=== PATIENT | male | born 1965 | race Caucasian/White ===

== ENCOUNTER 2018-03-30 05:34 | Inpatient (IN) | payer BC, OTHER ==
[2018-03-23 13:45] LABS: BASOPHILS % 0.5 % (0.0-1.0); EOSINOPHILS # (AUTO) 0.1 (0.0-0.4); EOSINOPHILS % 1.9 % (0.0-6.0); HEMATOCRIT 46.2 % (38.2-49.6); HEMOGLOBIN 15.6 g/dL (14.0-18.0); LYMPHOCYTES # (AUTO) 1.5 (1.0-3.2); LYMPHOCYTES % 26.1 % (18.0-39.1); MEAN CORPUSCULAR HEMOGLOBIN 30.2 pg (28-32); MEAN CORPUSCULAR HGB CONC 33.8 g/dL (31-35); MEAN CORPUSCULAR VOLUME 89.4 fL (81-99); MONOCYTES # (AUTO) 0.5 (0.2-0.8); MONOCYTES % 8.6 % (4.4-11.3); NEUTROPHILS # (AUTO) 3.7 (2.1-6.9); NEUTROPHILS % 62.6 % (38.7-80.0); PLATELET COUNT 171 x10e3/uL (140-360); RED BLOOD COUNT 5.17 x10e6/uL (4.3-5.7); RED CELL DISTRIBUTION WIDTH 13.1 % (11.7-14.4)
[2018-03-23 13:58] LABS: ANION GAP 12.3 mmol/L (8-16); BLOOD UREA NITROGEN 13 mg/dL (7-26); BUN/CREATININE RATIO 11 (6-25); CALCIUM 9.7 mg/dL (8.4-10.2); CARBON DIOXIDE 29 mmol/L (22-29); CHLORIDE 100 mmol/L (98-107); CREATININE, SERUM 1.23 mg/dL (0.72-1.25); EST GLOMERULAR FILTRATION RATE > 60 ML/MIN (60-); GLUCOSE 90 mg/dL (74-118); POTASSIUM 4.3 mmol/L (3.5-5.1); SODIUM 137 mmol/L (136-145)
--- NOTE | 2018-03-23 14:02 | Diagnostic Imaging Report ---
EXAMINATION: CHEST 2 VIEWS INDICATION: ^PRE ADMIT ^[id number] ^[id number] COMPARISON: None FINDINGS: PA and lateral views TUBES and LINES: None. LUNGS: Lungs are well inflated. Lungs are clear. There is no evidence of pneumonia or pulmonary edema. PLEURA: No pleural effusion or pneumothorax. HEART AND MEDIASTINUM: The cardiomediastinal silhouette is unremarkable. BONES AND SOFT TISSUES: No acute osseous lesion. Soft tissues are unremarkable. UPPER ABDOMEN: No free air under the diaphragm. IMPRESSION: No acute thoracic abnormality. Signed by: Dr. Domingo Cm MD on 03/23/2018 1:59 PM
[~2018-03-30] VITALS: Ht 177.8 cm; Wt 87.8 kg
[~2018-03-30 05:34] MED LIST: ATENOLOL50 MG PO; ATORVASTATIN CA20 MG PO; GABAPENTIN300 MG PO; LOSARTAN POTASS25 MG PO
--- OUTSIDE RECORDS SUMMARY | 2018-03-30 05:37 | XMS REPORT | Clinical Summary ---
Author Author ONEIDA [employer] [facility] Address Unknown Phone Unavailable Care Team Providers Care Gasoline Service Attendant Name Role Phone Isis Olivera MD PCP Allergies Comments Active Allergy Reactions Severity Noted Date BLISTERING PAPER TAPE OK Adhesive Itching 06/24/2015 Zolpidem Rash Low 05/22/2015 FEVER Cephalexin Other (See 05/22/2015 Comments) Medications End Date Status Medication Sig Dispensed Refills Start Date Active gabapentin (NEURONTIN) Take 300 mg 0 300 MG capsule by mouth daily. Active losartan (COZAAR) 25 MG Take 25 mg by 0 tablet mouth daily. Active atenolol (TENORMIN) 25 MG Take 25 mg by 0 tablet mouth daily. Active atorvastatin (LIPITOR) 40 Take 40 mg by 0 MG tablet mouth daily. 12/02/2017 Discontinued simvastatin (ZOCOR) 20 MG Take 20 mg by 0 tablet mouth nightly. 12/02/2017 Discontinued amitriptyline (ELAVIL) 50 Take 50 mg by 0 MG tablet mouth nightly. 12/02/2017 Discontinued lisinopril Take 20 mg by 0 (PRINIVIL,ZESTRIL) 20 MG mouth daily. tablet 12/02/2017 Discontinued acetaminophen-codeine Take 1 tablet 30 tablet 0 (TYLENOL #4) 300-60 mg by mouth 6 per tablet every 4 (four) hours as needed for Pain for up to 30 doses. 12/23/2017 traMADol (ULTRAM) 50 mg Take 1 tablet 40 tablet 0 tablet (50 mg total) 8 by mouth every 4 (four) hours as needed for Pain for up to 10 days. Max Daily Amount: 300 mg Active Problems Problem Noted Date Impingement syndrome of right shoulder 12/13/2017 Superior glenoid labrum lesion of right shoulder 12/13/2017 Encounters Care Team Description Date Type Specialty Scott Poseyon NOMI Henderson 12/13/2017 Anesthesia Event Santiago Yancey MD ARTHROSCOPY,BICEPS TENODESIS 12/13/2017 Surgery Santiago Yancey MD 12/13/2017 Hospital Encounter Santiago Yancey MD 12/05/2017 Hospital Pre-Admission Testing Encounter 12/05/2017 Orders Only General Internal Medicine after 03/29/2017 Social History Date Tobacco Use Types Packs/Day Years Used Former Smoker Smokeless Tobacco: Never Used Alcohol Use Drinks/Week oz/Week Comments Yes very little Sex Assigned at Date Recorded Not on file Industry Job Start Date Occupation Not on file Not on file Not on file Travel End Travel History Travel Start No recent travel history available. Last Filed Vital Signs Time Taken Vital Sign Reading 12/13/2017 12:50 PM CDT Blood Pressure 130/65 12/13/2017 12:50 PM CDT Pulse 67 12/13/2017 11:42 AM CDT Temperature 36.1 C (97 F) 12/13/2017 12:50 PM CDT Respiratory Rate 16 12/13/2017 12:50 PM CDT Oxygen Saturation 96% - Inhaled Oxygen - Concentration 12/02/2017 4:08 PM CDT Weight 81.2 kg (179 lb) 12/02/2017 4:08 PM CDT Height 177.8 cm (5' 10") 12/02/2017 4:08 PM CDT Body Mass Index 25.68 Plan of Treatment Not on file Implants Device Identifier Shelf Expiration Date Model / Serial / Lot Implanted Type Area Manufactur er 02/24/2020 [id number] / / [id number] Scr Biosure Regenesrb 8x20mm [place]/Art Right: Shoulder GOMEZ & [id number] - [id number] hroscopy NEPHEW:END Implanted: Qty: 1 on 12/13/2017 by O Santiago Yancey MD 05/10/2020 OM-1502 / / [id number] Device Fix Opus Om-1502 - [id number] [place]/Art Right: Shoulder ARTHROCARE Implanted: Qty: 1 on 12/13/2017 by hroscopy :Santiago Parmar MD 02/13/2020 OM-8176 / / [id number] Cart Sut Smartstitch Om-8176 - [place]/Art Right: Shoulder ARTHROCARE [id number] hroscopy :SPINE Implanted: Qty: 1 on 12/13/2017 by Santiago Yancey MD 08/19/2022 [id number] / / [id number] Amniofix Injectable 160mg -5200 - Cement/Cesar Right: Shoulder MIMEDX [id number] ler/[employer] Implanted: Qty: 1 on 12/13/2017 by Santiago Carroll MD 10/18/2016 / / [id number] Contour Injection Stent Left: Ureter BOSTON Implanted: Qty: 1 on 06/26/2015 by Latrell Patino MD Procedures Comments Procedure Name Priority Date/Time Associated Diagnosis REPORT OF PROCEDURE - 12/14/2017 ENDOSCOPY SCAN 11:13 AM CDT ANESTHESIA PERIPHERAL Routine 12/13/2017 BLOCK 10:30 AM CDT ARTHROSCOPY,SHOULDER 12/13/2017 Coracoid impingement of DISTAL CLAVICULECTOMY 9:30 AM CDT right shoulder (ROLFE) Detachment of glenoid labrum, right, initial encounter Special Needs GOMEZ & NEPHEW (ETHAN) CONFIRMED 12/08 ARTHROSCOPY,SHOULDER 12/13/2017 Coracoid impingement of DECOMPRESSION SUBACROMIAL 9:30 AM CDT right shoulder SPACE W/ACROMIOPLASTY Detachment of glenoid labrum, right, initial encounter Special Needs GOMEZ & NEPHEW (ETHAN) CONFIRMED 12/08 ARTHROSCOPY,BICEPS 12/13/2017 Coracoid impingement of TENODESIS 9:30 AM CDT right shoulder Detachment of glenoid labrum, right, initial encounter Special Needs GOMEZ & NEPHEW (ETHAN) CONFIRMED 12/08 ECG 12-LEAD Routine 12/05/2017 2:39 PM CDT Procedure Note - Interface, External Ris In - 12/05/2017 2:40 PM CDT Ventricula r Rate 63 BPM Atrial Rate 63 BPM P-R Interval 168 ms QRS Duration 92 ms Q-T Interval 398 ms QTC Calculatio n(Bazett) 407 ms P [place] 49 degrees R [place] 23 degrees T [place] 50 degrees Normal sinus rhythm Normal ECG No previous ECGs available ECG 12-LEAD Routine 12/05/2017 2:39 PM CDT HEMOGLOBIN Routine 12/05/2017 2:35 PM CDT ELECTROLYTE PANEL Routine 12/05/2017 2:35 PM CDT BUN AND CREATININE Routine 12/05/2017 2:35 PM CDT after 03/29/2017 Results * EKG-SCANNED (12/14/2017 11:13 AM CDT) Narrative Performed At * ANESTHESIA PERIPHERAL BLOCK (12/13/2017 10:30 AM CDT) Narrative Performed At Mellissa Peres MD 12/13/2017 10:30 AM Peripheral Block Patient location during procedure: pre-op Start time: 12/13/2017 9:10 AM End time: 12/13/2017 9:15 AM Reason for block: at surgeon's request and post-op pain management Staffing Anesthesiologist: MELLISSA PERES Performed by: anesthesiologist Preanesthetic Checklist Completed: patient identified, site marked, surgical consent, pre-op evaluation, timeout performed, IV checked, risks and benefits discussed and monitors and equipment checked Peripheral Block Patient position: supine Prep: ChloraPrep Patient monitoring: heart rate, athletic monitor and continuous pulse ox Block type: Interscalene Laterality: right Injection technique: single-shot Procedures: ultrasound guided Local infiltration: ropivicaine Infiltration strength: 0.5 % Dose: 30 mL Needle Needle type: short-bevel Needle gauge: 21 G Needle length: 100 mm Needle insertion depth: 3 cm Test dose: negative Assessment Injection assessment: negative aspiration for heme, no paresthesia on injection, incremental injection and local visualized surrounding nerve on ultrasound Paresthesia pain: none Heart rate change: no Slow fractionated injection: yes Procedure Note Mellissa Peres MD - 12/13/2017 10:29 AM CDT Peripheral Block Patient location during procedure: pre-op Start time: 12/13/2017 9:10 AM End time: 12/13/2017 9:15 AM Reason for block: at surgeon's request and post-op pain management Staffing Anesthesiologist: MELLISSA PERES Performed by: anesthesiologist Preanesthetic Checklist Completed: patient identified, site marked, surgical consent, pre-op evaluation, timeout performed, IV checked, risks and benefits discussed and monitors and equipment checked Peripheral Block Patient position: supine Prep: ChloraPrep Patient monitoring: heart rate, athletic monitor and continuous pulse ox Block type: Interscalene Laterality: right Injection technique: single-shot Procedures: ultrasound guided Local infiltration: ropivicaine Infiltration strength: 0.5 % Dose: 30 mL Needle Needle type: short-bevel Needle gauge: 21 G Needle length: 100 mm Needle insertion depth: 3 cm Test dose: negative Assessment Injection assessment: negative aspiration for heme, no paresthesia on injection, incremental injection and local visualized surrounding nerve on ultrasound Paresthesia pain: none Heart rate change: no Slow fractionated injection: yes * ECG 12 lead (12/05/2017 2:39 PM CDT) Narrative Performed At Ventricular Rate 63 BPM GE MUSE Atrial Rate 63 BPM P-R Interval 168 ms QRS Duration 92 ms Q-T Interval 398 ms QTC Calculation(Bazett) 407 ms P [place] 49 degrees R [place] 23 degrees T [place] 50 degrees Normal sinus rhythm Normal ECG No previous ECGs available Confirmed by Charu Hicks MD ([id number]) on 12/08/2017 6:31:12 AM Procedure Note Interface, External Ris In - 12/08/2017 6:31 AM CDT Ventricular Rate 63 BPM Atrial Rate 63 BPM P-R Interval 168 ms QRS Duration 92 ms Q-T Interval 398 ms QTC Calculation(Bazett) 407 ms P [place] 49 degrees R [place] 23 degrees T [place] 50 degrees Normal sinus rhythm Normal ECG No previous ECGs available Confirmed by Charu Hicks MD ([id number]) on 12/08/2017 6:31:12 AM Performing Organization Address City/[facility] Phone Number [employer] MUSE * BUN and Creatinine (12/05/2017 2:35 PM CDT) BUN 14 10 - 26 mg/dL [facility] Creatinine 1.20 0.50 - 1.20 mg/dL [facility] EGFR 64Comment: ESTIMATED GFR IS mL/min/1.73 sq m [facility] NOT ACCURATE CREATININE CLEARANCE IN PREDICTING GLOMERULAR FILTRATION RATE. ESTIMATED GFR IS NOT APPLICABLE FOR DIALYSIS PATIENTS. Specimen Blood Performing Organization Address City/[facility] Phone Number [facility] [address] [facility] [place], [place] [id number] * Hemoglobin (12/05/2017 2:35 PM CDT) Hemoglobin 14.4 13.0 - 16.8 GM/DL [facility] Specimen Blood Performing Organization Address City/State/Zipcode Phone Number [facility] [place] [place] [address] [facility] [address] [place] [address] * Electrolytes (12/05/2017 2:35 PM CDT) Sodium 144 135 - 148 meq/L [facility] Potassium 4.5 3.6 - 5.5 meq/L [facility] Chloride 108 (H) 98 - 106 meq/L [facility] CO2 26 20 - 29 meq/L [facility] Specimen Blood Performing Organization Address [facility] Phone Number [facility] [place] [address] [facility] [place] [place] [address] after 03/29/2017 Insurance Payer Benefit Subscriber ID Type Phone Address Plan / Group BLUE CROSS/BLUE SHIELD BCBS PPO xxxxxxxxxxxx PPO [phone] [address] [place] [address] CHOICE Advance Directives For more information, please contact: [facility] [address] [place] [address] Date Inactivated Comments Code Status Date Activated 12/13/2017 3:05 PM Full Code 12/13/2017 7:23 AM This code status was determined by: Patient 05/22/2015 7:30 PM Full Code 05/22/2015 11:08 AM This code status was determined by: Patient
--- OUTSIDE RECORDS SUMMARY | 2018-03-30 05:37 | XMS REPORT ---
Author Author [facility] Address Unknown Phone Unavailable Care Team Providers Care Newspaper Delivery Driver Name Role Phone Leonie MONTOYA Unavailable Unavailable REMI ROGERS Unavailable Unavailable Problems This patient has no known problems. Allergies, Adverse Reactions, Alerts This patient has no known allergies or adverse reactions. Medications This patient has no known medications. Results Test Description Test Time Test Comments Text Results Atomic Results Result Comments CHEST 2 VIEWS 2018-03-23 13:59:00 [place] [address] Patient Name: OLIVIA BERTRAND MR #: [id number] : 1965 Age/Sex: 52/M Req #: [id number] Adm Physician: Ordered by: BACILIO MONTOYA MD Report #: [id number] Location: OR Room/Bed: Procedure: [id number] DX/CHEST 2 VIEWS Exam Date: 03/23/18 Exam Time: 1338 REPORT STATUS: Signed EXAMINATION: CHEST 2 VIEWS INDICATION: PRE ADMIT [id number] COMPARISON: None FINDINGS: PA and lateral views TUBES and LINES: None. LUNGS: Lungs are well inflated. Lungs are clear. There is no evidence of pneumonia or pulmonary edema. PLEURA: No pleural effusion or pneumothorax. HEART AND MEDIASTINUM: The cardiomediastinal silhouette is unremarkable. BONES AND SOFT TISSUES: No acute osseous lesion. Soft tissues are unremarkable. UPPER ABDOMEN: No free air under the diaphragm. IMPRESSION: No acute thoracic abnormality. Signed by: Dr. Domingo England MD on 03/23/2018 1:59 PM Dictated By: DOMINGO ENGLAND MD [id number] Transcribed By: STEPHY on 03/23/18 0224 COPY TO: BACILIO MONTOYA MD ELECTROLYTES 2017-12-05 15:04:00 SODIUM (BEAKER) (test bede=925) 144 meq/L 135-148 POTASSIUM (BEAKER) (test qyue=972) 4.5 meq/L 3.6-5.5 CHLORIDE (BEAKER) (test azmw=425) 108 meq/L 98-106 CO2 (BEAKER) (test pwkx=240) 26 meq/L 20-29 BUN AND [id number] 15:04:00* Test Item Value Reference Range Comments BLOOD UREA NITROGEN (BEAKER) (test picb=359) 14 mg/dL 10-26 CREATININE (BEAKER) (test iyie=143) 1.20 mg/dL 0.50-1.20 EGFR (BEAKER) (test vide=2734) 64 mL/min/1.73 sq m ESTIMATED GFR IS NOT ACCURATE CREATININE CLEARANCE IN PREDICTING GLOMERULAR FILTRATION RATE. ESTIMATED GFR IS NOT APPLICABLE FOR DIALYSIS PATIENTS. [id number] 14:46:00* Test Item Value Reference Range Comments HEMOGLOBIN (BEAKER) (test adxh=362) 14.4 GM/DL 13.0-16.8
[2018-03-30] MEDS ORDERED: CEFTRIAXONE SOD 1 GM/NS 50 ML 50 ML IV ONE (07:00)
--- NOTE | 2018-03-30 07:15 | NUR ---
SPIRITUAL CARE - Pre-Surgery Assessment: Pt in bed. Pt's and friend at bedside. Pt reported supportive attention from family and friends. Intervention: I provided pastoral presence, hospitality, prayer, and sympathetic listening. I acquainted pt with availability of oven technician while hospitalized. Outcome: Pt expressed appreciation for visit. Pt requested follow up visit. PARRIS Rodríguezlain Spiritual Care Department O: [phone] Pager: [phone] ([phone] + number calling from)
[2018-03-30] MEDS ORDERED: BUPIVACAINE 0.25% 30ML SDV INJ ONE (07:42)
[2018-03-30] MEDS ORDERED: BACITRACIN 50,000 UNIT VIAL ONE (07:42)
[2018-03-30] MEDS ORDERED: FENTANYL CITRATE/PF 100MCG/2 ML INJ ONE ×2 (12:51→14:09)
--- OUTSIDE RECORDS SUMMARY | 2018-03-30 12:52 | XMS REPORT | Clinical Summary ---
Author Author ONEIDA [employer] [facility] [facility] Address Unknown Phone Unavailable Care Team Providers Care Cardiovascular Surgical Tech Name Role Phone Isis Olivera MD PCP [...] Lot Implanted Type Area Manufactur er 02/24/2020 [id number] / / [id number] Scr Biosure Regenesrb 8x20mm [place]/Art Right: Shoulder GOMEZ & [id number] - [id number] hroscopy NEPHEW:END Implanted: Qty: 1 on 12/13/2017 by O Santiago Yancey MD 05/10/2020 OM-1502 / / [id number] Device Fix Opus Om-1502 - [id number] [place]/Art Right: Shoulder ARTHROCARE Implanted: Qty: 1 on 12/13/2017 by hroscopy :Santiago Parmar MD 02/13/2020 OM-8176 / / [id number] Cart Sut Smartstitch Om-8176 - [place]/Art Right: Shoulder ARTHROCARE [id number] hroscopy :SPINE Implanted: Qty: 1 on 12/13/2017 by Santiago Yancey MD 08/19/2022 AI-5200 / / [id number] Amniofix Injectable 160mg -5200 - [place]/Cesar Right: Shoulder MIMEDX [id number] ler/[employer] Implanted: Qty: 1 on 12/13/2017 by Santiago Carroll MD 10/18/2016 / / [id number] Contour Injection Stent Left: Ureter BOSTON Implanted: Qty: 1 on 06/26/2015 by Latrell Patino MD Procedures Comments Procedure Name Priority Date/Time Associated Diagnosis REPORT OF PROCEDURE - 12/14/2017 ENDOSCOPY SCAN 11:13 AM CDT ANESTHESIA PERIPHERAL Routine 12/13/2017 BLOCK 10:30 AM CDT ARTHROSCOPY,SHOULDER 12/13/2017 Coracoid impingement of DISTAL CLAVICULECTOMY 9:30 AM CDT right shoulder (GLEN ROGERS) Detachment of glenoid labrum, right, initial encounter [...] ms QTC Calculatio n(Bazett) 407 ms P [place] 49 degrees R [place] 23 degrees T [place] 50 degrees Normal sinus rhythm Normal ECG [...] supine Prep: ChloraPrep Patient monitoring: heart rate, architectural inspector and continuous pulse ox Block type: Interscalene [...] supine Prep: ChloraPrep Patient monitoring: heart rate, architectural inspector and continuous pulse ox Block type: Interscalene [...] 398 ms QTC Calculation(Bazett) 407 ms P [place] 49 degrees R [place] 23 degrees T [place] 50 degrees Normal sinus rhythm Normal ECG No previous ECGs available Confirmed by Charu Hicks MD ([id number]) on 12/08/2017 6:31:12 AM Procedure Note Interface, External Ris In - 12/08/2017 6:31 AM CDT Ventricular Rate 63 BPM Atrial Rate 63 BPM P-R Interval 168 ms QRS Duration 92 ms Q-T Interval 398 ms QTC Calculation(Bazett) 407 ms P [place] 49 degrees R [place] 23 degrees T [place] 50 degrees Normal sinus rhythm Normal ECG No previous ECGs available Confirmed by Charu Hicks MD ([id number]) on 12/08/2017 6:31:12 AM Performing Organization Address [place] Phone Number [employer] MUSE * BUN and Creatinine (12/05/2017 2:35 PM CDT) BUN 14 10 - 26 mg/dL [facility] Creatinine 1.20 0.50 - 1.20 mg/dL [facility] EGFR 64Comment: ESTIMATED GFR IS mL/min/1.73 sq m [facility] NOT ACCURATE CREATININE CLEARANCE IN PREDICTING GLOMERULAR FILTRATION RATE. ESTIMATED GFR IS NOT APPLICABLE FOR DIALYSIS PATIENTS. Specimen Blood Performing Organization Address City/[facility] Phone Number [facility] [address] [facility] [place], [place] [phone] * Hemoglobin (12/05/2017 2:35 PM CDT) Hemoglobin 14.4 13.0 - 16.8 GM/DL [facility] Specimen Blood Performing Organization Address City/State/Zipcode Phone Number [facility] [place] [place] [address] [facility] [address] [place] [address] * Electrolytes (12/05/2017 2:35 PM CDT) Sodium 144 135 - 148 meq/L [facility] Potassium 4.5 3.6 - 5.5 meq/L [facility] Chloride 108 (H) 98 - 106 meq/L [facility] CO2 26 20 - 29 meq/L [facility] Specimen Blood Performing Organization Address [facility] Phone Number [facility] [place] [address] [facility] [place] [place] [address] after 03/29/2017 Insurance Payer Benefit Subscriber ID Type Phone Address Plan / Group BLUE CROSS/BLUE SHIELD BCBS PPO xxxxxxxxxxxx PPO [phone] [address] [place] [address] CHOICE Advance Directives For more information, please contact: [facility] [address] [place] [address] Date Inactivated Comments Code Status Date Activated 12/13/2017 3:05 PM Full Code 12/13/2017 7:23 AM This code status was determined by: Patient 05/22/2015 7:30 PM Full Code 05/22/2015 11:08 AM This code status was determined by: Patient
[2018-03-30] MEDS ORDERED: MORPHINE SULFATE 1 MG/ML 30ML PCA ONE (13:30)
[2018-03-30] MEDS ORDERED: MIDAZOLAM HCL 2 MG/2 ML VIAL ONE (14:09)
[2018-03-30 14:10] VITALS: BP 145/71
--- NOTE | 2018-03-30 14:10 | NUR ---
RECEIVED TO RM AAOX3, NO DISTRESS NOTED, UPDATED ON POC VOCIED UNDERSTANDING, IVF INFUSING TO R HAND 20G NO SS OF INFILTRATION NOTED, MIDLINE DRESSING TO ABDOMEN INTACT, UROSTOMY BAG TO DRAINAGE BAG WITH PINK TINGED URINE NOTED, NG TO R NARE WITH BROWNISH FLUID NOTED, MORPHINE GENERAL SURGEON TO R HAND 20G, NO OTHER CO VOICED CALL LIGHT IN REACH WILL CONTINUE OT MONITOR
[2018-03-30 14:15] VITALS: BP 145/71
[2018-03-30] MEDS: SODIUM CHLORIDE 0.9% 250ML IRRIG IR SCH ×3 (14:30→21:35)
[2018-03-30] MEDS ORDERED: MORPHINE SULFATE 1 MG/ML 30ML PCA IV PRN ×4 (15:30→16:15)
[2018-03-30 16:46] VITALS: BP 132/61
[2018-03-30] MEDS: GABAPENTIN 300 MG CAP PO SCH (17:00)
[2018-03-30] MEDS: FAMOTIDINE 20 MG/2 ML VIAL IV SCH (17:11)
[2018-03-30] MEDS: DEXTROSE 5%/LACTATED RINGERS 1,000 ML IV SCH (17:12)
--- NOTE | 2018-03-30 19:10 | NUR ---
WALKING ROUNDS PERFORMED, RECEIVED PT LAYING SEMI FOWLERS IN BED, AAOX3, RR EVEN AND NON-LABORED, ON RA. NGT TO (R) NARE CONNECTED TO SUCTION. INTERIOR ASSEMBLIES INSTALLER BUTTON WITHIN REACH. LEFT PT LAYING SEMI FOWLERS IN BED, BED IN LOW LOCKED POSITION, SIDE RAILS UPX2, CALL LIGHT AND PHONE WITHIN REACH.
--- NOTE | 2018-03-30 19:24 | NUR ---
RECEIVED CALL FROM MD MONTOYA CONCERNING CURRENT STATUS OF PT. NEW ORDERS RECEIVED AND REPORTS HE WILL BE IN TO SEE THE PT ON 03/31.
[2018-03-30] MEDS: LOSARTAN POTASSIUM 25 MG TAB PO SCH (19:39)
[2018-03-30] MEDS: ATORVASTATIN 20 MG TAB PO SCH (19:40)
[2018-03-30] MEDS: ATENOLOL 50 MG TAB PO SCH (19:41)
[2018-03-30 20:00] VITALS: BP 145/60
[2018-03-30] MEDS ORDERED: ACETAMINOPHEN 1000 MG/100 ML IV ONE (21:30)
[2018-03-30] MEDS ORDERED: PROPOFOL IV EMULSION 10 MG/ML 20 ML VIAL ONE (21:30)
[2018-03-30] MEDS ORDERED: NEOSTIGMINE 5 MG/5ML SYR ONE (21:30)
[2018-03-30] MEDS ORDERED: GLYCOPYRROLATE INJ 1MG/ 5 ML SYR ONE (21:30)
[2018-03-30] MEDS ORDERED: LIDOCAINE HCL 2% LOCAL INJ 5 ML SDV VIAL INJ ONE (21:30)
[2018-03-30] MEDS ORDERED: ROCURONIUM BROMIDE 10 MG/ML 5ML VIAL ONE (21:30)
[2018-03-30] MEDS ORDERED: SEVOFLURANE INHAL SOLN 250 ML PEN BTL ONE (21:30)
[2018-03-30] MEDS ORDERED: DEXAMETHASONE SOD PHOS INJ 4 MG/ML VIAL ONE (21:30)
[2018-03-30] MEDS ORDERED: EPHEDRINE SULFATE INJ 50 MG/10 ML SYR ONE (21:30)
[2018-03-30] MEDS ORDERED: ONDANSETRON HCL INJ 2MG/ML 2ML 2 MG/ML VIAL ONE (21:30)
[2018-03-30 21:44] VITALS: BP 145/60
[2018-03-31] VITALS (8 sets, daily range): BP systolic 128–154; BP diastolic 66–79
[2018-03-31] MEDS: DEXTROSE 5%/LACTATED RINGERS 1,000 ML IV SCH ×4 (00:55→16:47)
[2018-03-31] MEDS: SODIUM CHLORIDE 0.9% 250ML IRRIG IR SCH ×2 (02:27→06:30)
[2018-03-31 06:02] LABS: BASOPHILS % 0.2 % (0.0-1.0); HEMATOCRIT 43.3 % (38.2-49.6); HEMOGLOBIN 14.5 g/dL (14.0-18.0); LYMPHOCYTES % 10.5 % (18.0-39.1); MEAN CORPUSCULAR HEMOGLOBIN 29.8 pg (28-32); MEAN CORPUSCULAR HGB CONC 33.5 g/dL (31-35); MEAN CORPUSCULAR VOLUME 89.1 fL (81-99); MONOCYTES % 10.5 % (4.4-11.3); NEUTROPHILS # (AUTO) 7.2 (2.1-6.9); NEUTROPHILS % 78.6 % (38.7-80.0); PLATELET COUNT 188 x10e3/uL (140-360); RED BLOOD COUNT 4.86 x10e6/uL (4.3-5.7); RED CELL DISTRIBUTION WIDTH 13.2 % (11.7-14.4)
[2018-03-31 06:22] LABS: ANION GAP 16.6 mmol/L (8-16); CALCIUM 8.6 mg/dL (8.4-10.2); CREATININE, SERUM 2.2 mg/dL (0.72-1.25); POTASSIUM 4.6 mmol/L (3.5-5.1)
--- NOTE | 2018-03-31 06:32 | NUR ---
NGT TO FRANCISCO JONES (R). PROVIDED PT WITH MOUTHWASH AND ICE CHIPS AFTER REMOVAL. Addendum: 03/31/18 at 0633 by Francisca Brand RN CATHETER TIP INTACT.
--- NOTE | 2018-03-31 07:26 | NUR ---
Rcvd patient in report this am. Patient is up ambulating in hallway. No s/s of distress noted
[2018-03-31] MEDS: FAMOTIDINE 20 MG/2 ML VIAL IV SCH ×2 (08:39→16:47)
[2018-03-31] MEDS: GABAPENTIN 300 MG CAP PO SCH ×2 (08:50→17:46)
--- NOTE | 2018-03-31 09:30 | NUR ---
Patient is post op day 1 parastomal urostomy hernia. Lung lantigua clear to auscultation. Bowel sounds hypoactive. No edema noted. Patient ambulated this am with no complications. Left sided urostomy bag in place to espinal bag. Patient is NPO at this time. Tolerating ice chips. No nausea or vomiting noted. Morphine turret lathe tender pump in place for pain control. Spouse at bedside.
--- NOTE | 2018-03-31 10:00 | NUR ---
ASSESSMENT: Spiritual distress Pt hopeful for successful recovery. Pt's at bedside. Pt complimentary of his long-time surgeon. Intervention: Provided empathic listening. Facilitated illness review. Provided prayer. Outcome: Pt requests follow-up visit Tuesday (04/03/18) PARRIS Box Spiritual Care Department O: [phone] Pager: [phone] ([phone] + number calling from)
--- NOTE | 2018-03-31 10:26 | NUR ---
Patient c/o pain in his left quadrant. Patient's urostomy noted to not be draining at this time.
--- NOTE | 2018-03-31 10:35 | NUR ---
Call placed to Dr. Anderson and informed of the complication. MD gave no new orders and informed he would be here as soon as he could to see the patient
--- NOTE | 2018-03-31 10:54 | NUR ---
Call placed to Dr. Anderson for an order for nausea medication. Awaiting call back
--- NOTE | 2018-03-31 12:51 | NUR ---
New order received for antiemetic and inquired about flushing the internal catheter that was attached to the bag and no new orders received.
[2018-03-31] MEDS: ONDANSETRON HCL INJ 2MG/ML 2ML 2 MG/ML VIAL IV PRN (13:00)
--- NOTE | 2018-03-31 13:09 | NUR ---
Dr. Anderson at bedside. Urostomy noted to be draining a small amount of urine. Patient c/o pain on left side when abdomen palpated by MD. New order for full liquid diet at this time. Will await further orders
--- NOTE | 2018-03-31 14:01 | NUR ---
CASE MANAGEMENT INITIAL ASSESSMENT Classified Ad Taker to bedside to discuss plan of care with patient/family. CM/SW role and care transitions discussed. Anticipated discharge plan discussed along with duration of care. CM discussed patients right to make decisions in care. CM/SW work hours given. Patient lives: PATIENT LIVES ON 3RD FLOOR OF APARTMENT. PATIENT WITH ACCESS TO AN ELEVATOR. PATIENT LIVES WITH . Admit/Transfer: ED POA/Emergency contact: PATIENT Current/Previous Home Health: NONE AT THIS TIME PCP/Follow-up Care: N/A Current/Previous DME: JOSE LUIS Other Services: PATIENT HAS BEEN TO INPATIENT REHAB AT [facility] IN 2017 Employment Status: EMPLOYED Areas of Concerns: MOBILITY AND WEAKNESS Referral Needs: NONE AT THIS TIME Education Needs: DISCHARGE PLAN IMM/EMERSON given and signed (if applicable): N/A Goal for discharge: GOAL IS TO RETURN HOME WITH NO NEEDS CM left business card at the bedside with contact information. Name and number was also written on the patients whiteboard. Patient verbalized understanding of discussion. CM will follow-up with ongoing discharge and transition of care needs.
[2018-03-31] MEDS: ATENOLOL 50 MG TAB PO SCH (21:53)
[2018-03-31] MEDS: LOSARTAN POTASSIUM 25 MG TAB PO SCH (21:53)
[2018-03-31] MEDS: ATORVASTATIN 20 MG TAB PO SCH (21:53)
[2018-04-01] VITALS (7 sets, daily range): BP systolic 121–144; BP diastolic 57–74
[2018-04-01] MEDS: DEXTROSE 5%/LACTATED RINGERS 1,000 ML IV SCH (02:51)
--- NOTE | 2018-04-01 07:20 | NUR ---
Received patient and walking rounds complete. Patient resting in bed, no signs of distress at this time. Bed in lowest position, wheels locked, side rails up x2, call light in reach.
[2018-04-01] MEDS: GABAPENTIN 300 MG CAP PO SCH ×2 (09:18→21:00)
[2018-04-01] MEDS: FAMOTIDINE 20 MG/2 ML VIAL IV SCH ×2 (09:18→16:34)
--- NOTE | 2018-04-01 09:40 | NUR ---
Patient ambulated in the hallway with nurse and tolerated well. IV noted to be leaking and hurting in the right hand. Removed and noted catheter to be bent. Removed and new IV to be started
[2018-04-01 11:58] LABS: BLOOD UREA NITROGEN 9 mg/dL (7-26); BUN/CREATININE RATIO 9 (6-25); CALCIUM 8.9 mg/dL (8.4-10.2); CARBON DIOXIDE 26 mmol/L (22-29); CHLORIDE 104 mmol/L (98-107); CREATININE, SERUM 0.95 mg/dL (0.72-1.25); EST GLOMERULAR FILTRATION RATE > 60 ML/MIN (60-); GLUCOSE 130 mg/dL (74-118); SODIUM 138 mmol/L (136-145)
--- NOTE | 2018-04-01 12:20 | NUR ---
Patient A/O X3, unlabored breathing and even respirations on room air. Bowel sounds hypoactive, last BM was Tuesday. Midline abdominal dressing is clean, dry, and intact. Urostomy bag open to drainage, yellow urine present. REVENUE STAMPER morphine pump present, patient denies pain at this time. Call light in reach, bed in lowest position, wheels locked, side rails up x2. Will continue to monitor.
--- NOTE | 2018-04-01 17:37 | NUR ---
Paged Dr. Anderson regarding patient complaint of left side abdominal redness and warmth to touch.
--- NOTE | 2018-04-01 17:51 | NUR ---
Spoke with Dr. Anderson regarding redness on the left side of the abdomen that is warm to touch. Dr. Anderson said to monitor area for now.
[2018-04-01] MEDS: ATORVASTATIN 20 MG TAB PO SCH (21:00)
[2018-04-01] MEDS: ATENOLOL 50 MG TAB PO SCH (21:00)
[2018-04-01] MEDS: LOSARTAN POTASSIUM 25 MG TAB PO SCH (21:00)
[2018-04-01] MEDS: HYDROCODONE/APAP 5MG-325MG TAB PO PRN (21:11)
[2018-04-02] VITALS (8 sets, daily range): BP systolic 111–153; BP diastolic 58–70
--- NOTE | 2018-04-02 07:17 | NUR ---
Received patient and walking rounds complete. Patient resting in bed at this time, no signs of distress. Bed in lowest position, wheels locked, side rails up x2, call light in reach. Will continue to monitor.
[2018-04-02] MEDS: FAMOTIDINE 20 MG/2 ML VIAL IV SCH ×2 (08:03→16:34)
--- NOTE | 2018-04-02 09:00 | NUR ---
Paged Dr. Anderson regarding patient complaint of headache. Order for Acetaminophen PRN
[2018-04-02] MEDS: HYDROCODONE/APAP 5MG-325MG TAB PO PRN ×3 (09:26→20:52)
[2018-04-02] MEDS ORDERED: ACETAMINOPHEN 325 MG TAB PO PRN (09:30)
--- NOTE | 2018-04-02 09:40 | NUR ---
Patient A/O x3, even respirations on room air. Bowel sounds present and passing gas, but patient reports still no bowel movement since Tuesday03/29/18. Abdominal incision open to air. Redness to the left side of abdomen that is still warm to touch. Patient is ambulatory with assist. Has a left urostomy for elimination. Left 20g AC that is HL. Will continue to monitor.
--- NOTE | 2018-04-02 13:40 | NUR ---
Paged Dr. Anderson regarding blister forming on left side of wafer near bag.
--- NOTE | 2018-04-02 14:13 | NUR ---
Spoke with Dr. Anderson regarding blister. Continue to monitor area. Order for CBC and antibiotic placed.
[2018-04-02 14:54] LABS: BASOPHILS % 0.4 % (0.0-1.0); EOSINOPHILS # (AUTO) 0.2 (0.0-0.4); HEMATOCRIT 40.9 % (38.2-49.6); HEMOGLOBIN 13.5 g/dL (14.0-18.0); LYMPHOCYTES # (AUTO) 1.2 (1.0-3.2); LYMPHOCYTES % 12.3 % (18.0-39.1); MEAN CORPUSCULAR HEMOGLOBIN 30.4 pg (28-32); MEAN CORPUSCULAR VOLUME 92.1 fL (81-99); MONOCYTES # (AUTO) 1.2 (0.2-0.8); MONOCYTES % 12.8 % (4.4-11.3); NEUTROPHILS # (AUTO) 6.9 (2.1-6.9); NEUTROPHILS % 72.2 % (38.7-80.0); PLATELET COUNT 140 x10e3/uL (140-360); RED BLOOD COUNT 4.44 x10e6/uL (4.3-5.7); RED CELL DISTRIBUTION WIDTH 13.1 % (11.7-14.4)
[2018-04-02] MEDS: CEFDINIR 300 MG CAP PO SCH (16:34)
--- NOTE | 2018-04-02 18:44 | NUR ---
Urostomy bag was leaking, changed bag and used patients bag. Blister burst, paged Dr. Anderson and put in order to place Bactroban over blister.
[2018-04-02] MEDS: ATORVASTATIN 20 MG TAB PO SCH (20:51)
[2018-04-02] MEDS: LOSARTAN POTASSIUM 25 MG TAB PO SCH (20:51)
[2018-04-02] MEDS: GABAPENTIN 300 MG CAP PO SCH (20:51)
[2018-04-02] MEDS: ATENOLOL 50 MG TAB PO SCH (20:51)
[2018-04-03] VITALS (7 sets, daily range): BP systolic 112–128; BP diastolic 50–67
--- NOTE | 2018-04-03 07:38 | NUR ---
MD MONTOYA INTO SEE PT, DISCUSSED POC
--- NOTE | 2018-04-03 07:58 | NUR ---
PT MADE AWARE OF CT OF ABD AND NPO PENDING TEST, PT VERBALIZED UNDERSTANDING
[2018-04-03] MEDS: ONDANSETRON HCL INJ 2MG/ML 2ML 2 MG/ML VIAL IV PRN (08:30)
[2018-04-03] MEDS ORDERED: MUPIROCIN 2% OINT 22 GM TUBE TOP SCH (09:00)
--- NOTE | 2018-04-03 09:00 | NUR ---
WITH STANDBY ASSIST, PT AMBULATED TO BR, EMPTIED UROSTOMY BAG, STANDBY ASSIST TO WC, WHEELED OFF UNIT VIA FOR CT OF ABD/PELVIS, NO CHANGE IN CONDITION
--- NOTE | 2018-04-03 09:40 | NUR ---
BACK IN ROOM VIA WC, NO CHANGE IN CONDITION
[2018-04-03] MEDS: FAMOTIDINE 20 MG/2 ML VIAL IV SCH ×2 (10:00→20:25)
[2018-04-03] MEDS: HYDROCODONE/APAP 5MG-325MG TAB PO PRN ×2 (10:00→20:25)
[2018-04-03] MEDS: CEFDINIR 300 MG CAP PO SCH ×2 (10:00→18:00)
[2018-04-03] MEDS: MUPIROCIN 2% OINT 22 GM TUBE TOP SCH ×2 (10:00→20:25)
--- NOTE | 2018-04-03 10:40 | Diagnostic Imaging Report ---
EXAM: CT Abdomen and Pelvis WITH contrast INDICATION: Vomiting; urostomy placement, history of parastomal hernia. COMPARISON: None. TECHNIQUE: Abdomen and pelvis were scanned utilizing a multidetector helical scanner from the lung base to the pubic symphysis after administration of IV contrast. Coronal and sagittal reformations were obtained. Routine protocol was performed. Scan was performed when during portal venous phase. IV CONTRAST: 100 mL of Omnipaque 300 ORAL CONTRAST: Water COMPLICATIONS: None RADIATION DOSE: Total DLP: 484.8 mGy*cm CTDIvol has been reviewed. It is below the limits set by the Radiation Protocol Committee (RPC). FINDINGS: LINES and TUBES: None. LOWER THORAX: Patchy dependent atelectasis at the lung bases. HEPATOBILIARY: No evidence of focal lesion. No biliary ductal dilation. Status post cholecystectomy. SPLEEN: No splenomegaly. PANCREAS: No focal masses or ductal dilatation. ADRENALS: No adrenal nodules KIDNEYS/URETERS: Kidneys enhance symmetrically. No evidence of solid mass or stone. Mild left hydronephrosis. GI TRACT: No evidence of wall thickening or distension. Status post ileal conduit with anastomotic sutures in the lower abdomen/right lower quadrant. Appendix is normal. PELVIC ORGANS/BLADDER: Status post cystectomy with associated postoperative changes and surrounding stranding. There is a lower abdominal ileal conduit with urostomy in the left lower quadrant. LYMPH NODES: No lymphadenopathy. VESSELS: Scattered atherosclerotic changes of the abdominal aorta. PERITONEUM / RETROPERITONEUM: There are punctate foci of free intraperitoneal air, consistent with recent surgery in the lower abdomen. There is a 3.5 x 2.4 cm anterior midline abdominal fluid collection with some air without enhancing margins. BONES AND SOFT TISSUES: Additional punctate foci of air in the anterior lower abdominal wall and ill-defined fluid and stranding in the left lower anterior abdominal wall, likely post surgical. Midline lower anterior abdominal wall solomon. CONCLUSION: Expected postsurgical changes status post recent cystectomy, ileal conduit, left lower quadrant urostomy placement. Fluid and air collection measuring up to 3.5 cm in the lower abdomen without enhancing linares is favored to represent post operative change rather than abscess. Mild left hydronephrosis, likely related to reflux. No evidence of stone. No evidence of bowel obstruction in this patient with vomiting. Signed by: Dr. Preet Hein MD on 04/03/2018 10:37 AM
--- NOTE | 2018-04-03 10:58 | NUR ---
ASSESSMENT: Spiritual concern Pt preparing for discharge tomorrow. Pt's at bedside. Pt states he should d/c "in the morning." Pt dreading "removing solomon on ." Intervention: Provided unhurried empathic listening. Facilitated illness review and storytelling. Provided prayer. Outcome: Pt & expressed appreciation for support during hospitalization. PARRIS FLORES [employer] Spiritual Care Department O: [phone] Pager: [phone] ([phone] number calling from)
--- NOTE | 2018-04-03 12:29 | NUR ---
SPOKE WITH MD MONTOYA, AWARE OF CT RESULTS, NO ORDERS AT THIS TIME
[2018-04-03] MEDS ORDERED: IOPAMIDOL 370 MG/ML 200 ML INFUS..BTL INJ ONE (14:27)
[2018-04-03] MEDS ORDERED: SODIUM CHLORIDE 0.9% 50ML 50 ML ONE (14:27)
[2018-04-03] MEDS: ATORVASTATIN 20 MG TAB PO SCH (20:25)
[2018-04-03] MEDS: ATENOLOL 50 MG TAB PO SCH (20:25)
[2018-04-03] MEDS: GABAPENTIN 300 MG CAP PO SCH (20:25)
[2018-04-03] MEDS: LOSARTAN POTASSIUM 25 MG TAB PO SCH (20:25)
--- NOTE | 2018-04-03 20:25 | NUR ---
STACY DRY AND INTACT TO THE ABDOMEN, UROSTOMY INTACT WITHOUT DRAINAGE. OPEN AREA TO THE SKIN BY THE UROSTOMY, SEVERE REDNESS TO THE LEFT SIDE OF THE ABDOMEN. THE AREA IS HOT AND TENDER TO TOUCH, IT WAS MARKED FOR CLOSE OBSERVATION. PATIENT C/O PAIN TO THE ABDOMEN WITH PAIN SCORE #8, MEDICATED WITH NORCO 2TABS ORDERED. CALL LIGHT IN EASY REACH, INSTRUCTED TO CALL FOR ASSISTANCE NEEDED.
[2018-04-04] VITALS: BP 117/58
--- NOTE | 2018-04-04 00:07 | NUR ---
PATIENT IS SOUNDLY ASLEEP, NO RESPIRATORY DISTRESS OBSERVED, CALL LIGHT WITHIN EASY REACH.
--- NOTE | 2018-04-04 03:52 | NUR ---
PATIENT IS SOUNDLY ASLEEP WITHOUT RESPIRATORY DISTRESS, CALL LIGHT WITHIN EASY REACH.
[2018-04-04 04:00] VITALS: BP 126/58
--- NOTE | 2018-04-04 07:38 | NUR ---
handoff report rec'd during walking rounds with outgoing manager report nurse. pt awake at this time and denies any c/o. spouse sleeping on couch. NAD observed.
[2018-04-04 08:07] VITALS: BP 122/60
--- NOTE | 2018-04-04 08:40 | NUR ---
ASSESSMENT: Spiritual concern Pt has mixed emotions concerning going home. Pt's at bedside. Pt states he is ready to go home but is anxious about possible pain. Intervention: Provided empathic listening. Facilitated illness review. Provided prayer. Outcome: Pt & expressed appreciation for support during hospitalization. PARRIS FLORES Elderly Companion Spiritual Care Department O: [phone] Pager: [phone] ([phone] number calling from)
[2018-04-04] MEDS: MUPIROCIN 2% OINT 22 GM TUBE TOP SCH (08:57)
[2018-04-04] MEDS: HYDROCODONE/APAP 5MG-325MG TAB PO PRN (08:57)
[2018-04-04] MEDS: FAMOTIDINE 20 MG/2 ML VIAL IV SCH (08:57)
[2018-04-04] MEDS: CEFDINIR 300 MG CAP PO SCH (08:57)
[2018-04-04 09:38] VITALS: BP 122/60
--- NOTE | 2018-04-04 11:49 | NUR ---
Dr. Anderson called per patient request to inform/advise on urine output. Awaiting call back at this time.
--- NOTE | 2018-04-04 11:54 | NUR ---
Orders received to cancel the discharge orders. Keep the patient until the doctor sees the patient.
[2018-04-04 12:00] VITALS: BP 120/55
--- NOTE | 2018-04-04 13:15 | NUR ---
Dr. Anderson to see the patient, okay to discharge.
--- NOTE | 2018-04-04 13:49 | NUR ---
Discharge instructions given to the patient. Pt verbalized understanding. IV removed with tip intact. Dressing applied. All personal belongings gathered and packed. Pt escorted to personal vehicle via wheelchair with all personal belongings and in stable condition. See chart for details.
--- NOTE | 2018-04-04 14:04 | NUR ---
PATIENT DISCHARGING TODAY WITH NO NEEDS
--- NOTE | 2018-04-17 14:41 | Operative Report ---
DATE OF PROCEDURE: March 30, 2018 PREOPERATIVE DIAGNOSIS: Right parastomal hernia. POSTOPERATIVE DIAGNOSIS: Right parastomal hernia. OPERATIVE PROCEDURE PERFORMED 1. Exploratory laparotomy with lysis of adhesions. 2. Repair of right parastomal hernia and placement of the left stoma. ANESTHESIA: General anesthesia. ESTIMATED BLOOD LOSS: Less than 100 mL. INDICATIONS: Mr. Chandana Lazaro is a 52-year-old gentleman with a long history of benign neurogenic bladder who ultimately had placement of loop. He has now developed a parastomal hernia around his right stoma. He now presents for management of this problem. PROCEDURE IN DETAIL: The patient was brought into the operating room, placed in supine position, and after administration of general anesthesia, was prepped and draped in usual sterile fashion. His old midline scar was excised and the abdomen was carefully dissected. The rectus muscle was split at the midline and the abdomen reentered. Most of the bowel contents were stuck together, and these adhesions were slowly released using the and occasionally the electrocautery device. A Zaidi catheter had been placed in the prior stoma to allow complete identification of this portion of the bowel. Once the area around the stoma was dissected free, the stoma was then dissected from around the skin and the tissues underlying the stoma. Once it was completely free, the distal 2 cm of the stoma were removed and ultimately discarded. A new stoma site was created on the patient's left side. Once the circular portion of the skin was excised, a cruciate incision was made on the fascia and stitches were placed to all 4 sections of the fascia and were placed in 4 quadrants on the midportion of the stoma. The stoma was then everted in the standard fashion and interrupted stitches of both Vicryl and Chromic were used to create a new stoma on the left side. Great care was taken to ensure that the site of the fascia was approximately 2 fingers in breadth. Great care was also taken to pack the fascia to the looped segment with interrupted silk stitches internally. Once the new stoma was placed and was noted to be effluxing urine adequately, the old stoma site was closed in layers with the fascia being closed internally. The abdomen was then copiously irrigated with saline containing antibiotic solution and the fascia was closed with a running PDS stitch. The wound was then reapproximated and closed using solomon. The wound was then cleaned and dried and covered with a sterile gauze dressing. Anesthesia was reversed, and the patient was transferred to a bed and taken to the postanesthesia care unit in good condition. Of note, the patient was noted to have excellent urinary output throughout the procedure. Job#: [id number] JOSÉ MIGUEL
== END 2018-04-04 13:43 | disposition home or self-care (01) | DRG 354 ==
LOC: OR 05:34 → PACU V 12:48 → MED/SURG 14:13
PROVIDERS: ADMIT Urology; ATTEND Urology
PROC: 0WUF0JZ Supplement Abdominal Wall with Synthetic Substitute, Open Approach (ICD-10-PCS; 2018-03-30)
PROC: 0WQF0ZZ Repair Abdominal Wall, Open Approach (ICD-10-PCS; principal; 2018-03-30 08:00)
DX: K43.2 Incisional hernia without obstruction or gangrene (principal); N17.9 Acute kidney failure, unspecified; N99.523 Herniation of incontinent stoma of urinary tract; I10 Essential (primary) hypertension
CPT/HCPCS: 36415; 71046; 74177; 80048; 85025; 93005; 96376; J0696; J1100; J2001; J2250; J2270; J2405; Q9967